=== PATIENT | female | born 1995 | race Caucasian/White ===

== ENCOUNTER 2017-04-21 07:36 | Emergency (ER) | payer MEDICAID ==
[2017-04-21 08:28] LABS: Urine RBC None Seen /hpf (0 - 4)
[2017-04-21 09:03] LABS: Urine Bilirubin Negative (Negative); Urine Blood Negative /uL (Negative); Urine Color Yellow (Yellow); Urine Glucose Normal (Normal); Urine Ketone Negative (Negative); Urine Mucus FEW (None Seen); Urine Nitrite Negative (Negative); Urine Squamous Epithelial Cell FEW /hpf (<5); Urine Urobilinogen Normal (Negative)
[2017-04-21 10:18] LABS: Basophils # (auto) 0 uL; Basophils % (auto) 0.3 % (0.0-2.0); Eosinophils # (auto) 0 uL; Eosinophils % (auto) 0.3 % (0.0-7.0); Hematocrit 32.4 % (36.0-46.0); Hemoglobin 11.2 g/dL (12.2-16.2); Lymphocytes # (auto) 1.3 uL; Mean Corpuscular Hemoglobin 33.9 pg (28.0-32.0); Mean Corpuscular Hgb Conc. 34.6 g/dL (32.0-36.0); Mean Platelet Volume 9.3 fL (6.9-10.8); Monocytes # (auto) 0.5 uL; Monocytes % (auto) 4.5 % (0.0-12.0); Neutrophils # (auto) 10.1 uL; Neutrophils % (auto) 83.9 % (37.0-80.0); Platelet Count (auto) 192 10^3/uL (140-450); Red Cell Distribution Width 13.1 % (11.8-14.3)
[2017-04-21 10:40] LABS: Albumin 3.2 g/dL (3.4-5.0); BUN/Creatinine Ratio 22.5; Calcium 8.8 mg/dL (8.5-10.1); Potassium 4.1 mmol/L (3.5-5.1)
[2017-04-21 10:43] LABS: Bilirubin, Total 0.4 mg/dL (0.2-1.0); Total Protein 7.1 g/dL (6.4-8.2)
[2017-04-21] MEDS ORDERED: SODIUM CHLORIDE 0.9% 1,000 ML IV ONE (11:17)
[2017-04-21] MEDS ORDERED: cefTRIAXone 1GM/50ML D5W 50 ML IV ONE (11:30)
[2017-04-21 11:58] VITALS: BP 97/60
== END 2017-04-21 12:44 | disposition home or self-care (01) ==
LOC: ER 07:36
DX: O23.42 Unspecified infection of urinary tract in pregnancy, second trimester (principal); O25.12 Malnutrition in pregnancy, second trimester; Z3A.19 19 weeks gestation of pregnancy
CPT/HCPCS: 36415; 80053; 81001; 85025; 96365; 99284; J0696; J7030

== ENCOUNTER 2020-01-02 20:12 | Emergency (ER) | payer MEDICAID ==
[~2020-01-02] VITALS: Ht 160 cm; Wt 58.2 kg
[2020-01-02 21:06] LABS: Basophils # (auto) 0.1 10 ^3/uL (0-0.2); Basophils % (auto) 0.5 % (0.0-2.0); Eosinophils # (auto) 0.1 10 ^3/uL (0-0.8); Eosinophils % (auto) 0.8 % (0.0-7.0); Hematocrit 40.8 % (36.0-46.0); Lymphocytes # (auto) 1.9 10 ^3/uL (0.4-5.4); Lymphocytes % (auto) 16.4 % (10.0-50.0); Mean Corpuscular Hgb Conc. 34.2 g/dL (32.0-36.0); Mean Corpuscular Volume 93.7 fL (80.0-100.0); Monocytes # (auto) 0.5 10 ^3/uL (0-1.3); Monocytes % (auto) 4.7 % (0.0-12.0); Neutrophils # (auto) 8.9 10 ^3/uL (1.6-8.6); Neutrophils % (auto) 77.6 % (37.0-80.0); Platelet Count (auto) 301 10^3/uL (140-450); Red Blood Cells 4.36 10^6/uL (4.0-5.20); Red Cell Distribution Width 12.6 % (11.8-14.3); White Blood Cell 11.5 10^3/uL (4.4-10.8)
[2020-01-02 21:20] LABS: INR 0.96 (0.9-1.15); Partial Thromboplastin Time 28.3 sec (23.64-32.05)
[2020-01-02 23:07] LABS: Urine Bacteria NONE SEEN /hpf (None Seen); Urine Blood Negative /uL (Negative); Urine Mucus FEW (None Seen); Urine Specific Gravity 1.026 (1.001-1.035); Urine WBC 1 /hpf (0 - 5)
[2020-01-03 00:46] VITALS: BP 105/66
== END 2020-01-03 00:49 | disposition home or self-care (01) ==
LOC: ER 20:13
DX: O20.0 Threatened abortion (principal); Z3A.01 Less than 8 weeks gestation of pregnancy
CPT/HCPCS: 36415; 76801; 76817; 81001; 84702; 85025; 85610; 85730

== ENCOUNTER 2021-05-29 14:28 | Emergency (ER) | payer MEDICAID ==
[~2021-05-29] VITALS: Ht 160 cm; Wt 61.7 kg
[2021-05-29 15:24] VITALS: BP 122/77
[2021-05-29 15:27] LABS: Basophils # (auto) 0.1 10 ^3/uL (0-0.2); Basophils % (auto) 0.5 % (0.0-2.0); Eosinophils # (auto) 0.1 10 ^3/uL (0-0.8); Eosinophils % (auto) 0.6 % (0.0-7.0); Hematocrit 39.7 % (36.0-46.0); Hemoglobin 13.5 g/dL (12.2-16.2); Lymphocytes # (auto) 1.8 10 ^3/uL (0.4-5.4); Lymphocytes % (auto) 16.9 % (10.0-50.0); Mean Corpuscular Hemoglobin 31.8 pg (28.0-32.0); Mean Corpuscular Hgb Conc. 33.9 g/dL (32.0-36.0); Mean Corpuscular Volume 93.6 fL (80.0-100.0); Monocytes # (auto) 0.4 10 ^3/uL (0-1.3); Monocytes % (auto) 3.7 % (0.0-12.0); Neutrophils # (auto) 8.5 10 ^3/uL (1.6-8.6); Neutrophils % (auto) 78.3 % (37.0-80.0); Red Blood Cells 4.25 10^6/uL (4.0-5.20); Red Cell Distribution Width 13.1 % (11.8-14.3); White Blood Cell 10.9 10^3/uL (4.4-10.8)
[2021-05-29 16:59] LABS: Urine Bacteria FEW /hpf (None Seen); Urine Blood TRACE /uL (Negative); Urine Mucus FEW (None Seen); Urine Specific Gravity 1.027 (1.001-1.035); Urine WBC 15 /hpf (0 - 5)
== END 2021-05-29 17:13 | disposition home or self-care (01) ==
LOC: ER 14:28
DX: O20.0 Threatened abortion (principal); O23.41 Unspecified infection of urinary tract in pregnancy, first trimester; N39.0 Urinary tract infection, site not specified; Z3A.09 9 weeks gestation of pregnancy
CPT/HCPCS: 36415; 76801; 81001; 84702; 85025

== ENCOUNTER 2021-07-11 07:01 | Emergency (ER) | payer MEDICAID ==
[~2021-07-11] VITALS: Ht 160 cm; Wt 60.3 kg
[2021-07-11 07:27] VITALS: BP 106/70
[2021-07-11 08:28] LABS: Urine Bacteria NONE SEEN /hpf (None Seen); Urine Blood 1+ /uL (Negative); Urine Specific Gravity 1.017 (1.001-1.035); Urine WBC 2 /hpf (0 - 5)
== END 2021-07-11 08:41 | disposition home or self-care (01) ==
LOC: ER 07:01
DX: O20.0 Threatened abortion (principal); O34.82 Maternal care for other abnormalities of pelvic organs, second trimester; N83.202 Unspecified ovarian cyst, left side; Z3A.15 15 weeks gestation of pregnancy
CPT/HCPCS: 76805; 81001

== ENCOUNTER 2021-07-13 08:16 | Emergency (ER) | payer MEDICAID ==
[~2021-07-13] VITALS: Ht 160 cm; Wt 60.3 kg
[2021-07-13 08:59] VITALS: BP 120/84
[2021-07-13 09:58] LABS: Urine WBC None Seen /hpf (0 - 5)
[2021-07-13 13:00] LABS: Urine Bacteria NONE SEEN /hpf (None Seen); Urine Blood 3+ /uL (Negative); Urine Mucus FEW (None Seen); Urine Specific Gravity 1.026 (1.001-1.035)
== END 2021-07-13 14:12 | disposition home or self-care (01) ==
LOC: ER 08:16
DX: O20.0 Threatened abortion (principal); Z3A.15 15 weeks gestation of pregnancy
CPT/HCPCS: 76805; 81001

== ENCOUNTER 2021-12-13 09:03 | Observation (INO) | payer MEDICAID ==
[~2021-12-13] VITALS: Ht 160 cm; Wt 63.5 kg
== END 2021-12-13 11:02 | disposition home or self-care (01) ==
LOC: LDRP 09:03
PROVIDERS: ADMIT Obstetrics & Gynecology Obstetrics; ATTEND Obstetrics & Gynecology Obstetrics
DX: O36.60X0 Maternal care for excessive fetal growth, unspecified trimester, not applicable or unspecified (principal); O99.353 Diseases of the nervous system complicating pregnancy, third trimester; G40.909 Epilepsy, unspecified, not intractable, without status epilepticus; Z3A.37 37 weeks gestation of pregnancy
CPT/HCPCS: 59025; 76818; 81002; 82948; 82962; 94760; G0378

== ENCOUNTER 2021-12-15 07:15 | Inpatient (IN) | payer MEDICAID ==
[~2021-12-15] VITALS: Ht 160 cm; Wt 63.5 kg
[2021-12-15] MEDS ORDERED: LIDOCAINE 2%HCL (LOCAL ANESTH.) INJ 10ml MDV IJ PRN (08:00)
[2021-12-15] MEDS ORDERED: BUTORPHANOL TARTRATE 2 MG/1 ML VIAL IV PRN ×2 (08:00)
[2021-12-15] MEDS ORDERED: PROMETHAZINE HCL 25 MG/ML 1ML IV PRN (08:00)
[2021-12-15 08:21] LABS: Basophils # (auto) 0 10 ^3/uL (0-0.2); Basophils % (auto) 0.4 % (0.0-2.0); Eosinophils # (auto) 0 10 ^3/uL (0-0.8); Eosinophils % (auto) 0.5 % (0.0-7.0); Hematocrit 35.1 % (36.0-46.0); Lymphocytes # (auto) 1.5 10 ^3/uL (0.4-5.4); Lymphocytes % (auto) 14.8 % (10.0-50.0); Mean Corpuscular Hemoglobin 30.7 pg (28.0-32.0); Mean Corpuscular Hgb Conc. 34.2 g/dL (32.0-36.0); Mean Corpuscular Volume 89.9 fL (80.0-100.0); Monocytes # (auto) 0.5 10 ^3/uL (0-1.3); Monocytes % (auto) 4.9 % (0.0-12.0); Neutrophils # (auto) 7.8 10 ^3/uL (1.6-8.6); Neutrophils % (auto) 79.4 % (37.0-80.0); Nucleated Red Blood Cells % 0.1 %; Red Cell Distribution Width 14.6 % (11.8-14.3); White Blood Cell 9.8 10^3/uL (4.4-10.8)
[2021-12-15] MEDS ORDERED: PREN-96 PO (08:26)
[2021-12-15] MEDS ORDERED: PROP60CA34 PO (08:27)
[2021-12-15 08:28] LABS: Urine Bacteria NONE SEEN /hpf (None Seen); Urine Blood 2+ /uL (Negative); Urine Mucus FEW (None Seen); Urine Specific Gravity 1.025 (1.001-1.035); Urine WBC 77 /hpf (0 - 5)
[2021-12-15 08:33] LABS: Alcohol, Urine < 3.0 mg/dL (0-10); Amphetamine Screen, Urine NEGATIVE (NEGATIVE); Barbiturate Scree,Urine NEGATIVE (NEGATIVE); Benzodiazephine Screen, Urine NEGATIVE (NEGATIVE); Cannabinoid Screen, Urine NEGATIVE (NEGATIVE); Cocaine Screen, Urine NEGATIVE (NEGATIVE); Opiate Scree,Urine NEGATIVE (NEGATIVE); Phencyclidine Screen, Urine NEGATIVE (NEGATIVE)
[2021-12-15 08:42] LABS: Albumin 2.8 g/dL (3.4-5.0); Calcium 8.3 mg/dL (8.5-10.1); Potassium 3.9 mmol/L (3.5-5.1)
[2021-12-15 08:45] LABS: Bilirubin, Total 0.4 mg/dL (0.2-1.0); Total Protein 6.7 g/dL (6.4-8.2)
[2021-12-15 09:10] LABS: INR 0.93 (0.9-1.15); Partial Thromboplastin Time 22.9 sec (23.6-33.0)
[2021-12-15] MEDS ORDERED: miSOPROStol 50 MCG per PRE-CUT 1/2 TAB PO PRN (09:30)
[2021-12-15] MEDS: LACTATED RINGER'S 1,000 ML IV SCH ×3 (11:15→15:43)
[2021-12-15] MEDS ORDERED: LIDOCAINE HCL 2 %PF INJ 10ML AMP IJ ONE (14:45)
[2021-12-15] MEDS ORDERED: NALOXONE HCL 0.4 MG/ML VIAL IV ONE (14:45)
[2021-12-15] MEDS ORDERED: ePHEDrine SULFATE 50 MG/ML AMP IV ONE (14:45)
[2021-12-15] MEDS ORDERED: fentaNYL CITRATE 100 MCG/2 ML VL IV ONE (14:45)
[2021-12-15] MEDS ORDERED: ROPIVACAINE HCL 200 ML EPI SCH ×2 (14:45→16:00)
[2021-12-15] MEDS ORDERED: LACT. RINGERS/OXYTOCIN 20UNITS 500 ML IV ONE ×2 (17:30→18:00)
[2021-12-15] MEDS ORDERED: TERBUTALINE SULFATE 1 MG/ML 1ML VIAL SC PRN (17:30)
[2021-12-15] MEDS: DERMOPLAST 60ML BOTTLE TOP PRN ×2 (17:59→22:26)
[2021-12-15] MEDS: PHISODERM TOP SOLN 240ML BTL TOP PRN ×2 (17:59→22:26)
[2021-12-15] MEDS: WITCH HAZEL-GLYCERIN PAD TOP PRN ×2 (18:00→22:26)
[2021-12-15] MEDS ORDERED: ONDANSETRON ODT 4 MG TAB PO PRN (21:15)
[2021-12-15] MEDS: ACETAMINOPHEN 325 MG TAB PO PRN (22:13)
[2021-12-15] MEDS: DOCUSATE SOD 100 MG CAP PO SCH (22:29)
[2021-12-16] MEDS: IBUPROFEN 800 MG TAB PO SCH ×4 (00:12→17:40)
[2021-12-16 03:00] VITALS: BP 124/68
[2021-12-16 06:07] LABS: RPR Non Reactive (Non Reactive)
[2021-12-16 06:45] VITALS: BP 98/57
[2021-12-16] MEDS ORDERED: DOCU100C10 PO (07:17)
[2021-12-16] MEDS ORDERED: IBUP800T26 PO (07:17)
[2021-12-16 10:30] VITALS: BP 97/71
[2021-12-16] MEDS: ACETAMINOPHEN 325 MG TAB PO PRN ×3 (11:39→22:22)
[2021-12-16] MEDS: LACTATED RINGER'S 1,000 ML IV SCH ×2 (13:15→14:58)
[2021-12-16 15:15] VITALS: BP 101/64
[2021-12-16] MEDS ORDERED: IBUPROFEN 600 MG TAB PO PRN (18:30)
[2021-12-16 19:00] VITALS: BP 109/69
[2021-12-16] MEDS: DOCUSATE SOD 100 MG CAP PO SCH (22:21)
== END 2021-12-16 23:46 | disposition home or self-care (01) | DRG 560 ==
LOC: LDRP 07:15 → UNDOADMOB 07:15 → LDRP 07:21 → UNDOADMOB 07:21 → INTOOBSV 07:50 → OBSVTOIN 07:50 → LDRP 07:51 → UNDODISIN 12-16 23:46
PROVIDERS: ADMIT Obstetrics & Gynecology Obstetrics; ATTEND Obstetrics & Gynecology Obstetrics
PROC: 10E0XZZ Delivery of Products of Conception, External Approach (ICD-10-PCS; principal; 2021-12-15)
PROC: 3E0R3BZ Introduction of Anesthetic Agent into Spinal Canal, Percutaneous Approach (ICD-10-PCS; 2021-12-15)
PROC: 00HU33Z Insertion of Infusion Device into Spinal Canal, Percutaneous Approach (ICD-10-PCS; 2021-12-15)
DX: O42.92 Full-term premature rupture of membranes, unspecified as to length of time between rupture and onset of labor (principal); Z37.0 Single live birth; Z20.822 Contact with and (suspected) exposure to COVID-19; Z3A.38 38 weeks gestation of pregnancy
CPT/HCPCS: 36415; 59025; 59409; 62282; 80053; 80307; 81001; 81002; 84112; 85025; 85610; 85730; 86592; 86850; 86900; 86901; 94760; 94762; 96360; 96361; 96365; 96366; 96374; 96375; G0378; J2590

== ENCOUNTER 2023-04-16 11:57 | Emergency (ER) | payer MEDICAID ==
[~2023-04-16] VITALS: Ht 160 cm; Wt 58.3 kg
[~2023-04-16 11:57] MED LIST: DOCU-265 PO; IBUP-1455 PO; PREN-96 PO; PROP60CA34 PO
[2023-04-16 12:53] VITALS: BP 134/74; PULSE 120; RESP 16; TEMP 98.4; O2SAT 99
== END 2023-04-16 13:42 | disposition home or self-care (01) ==
LOC: ER 11:57
DX: S83.91XA Sprain of unspecified site of right knee, initial encounter (principal); Z79.899 Other long term (current) drug therapy; W18.09XA Striking against other object with subsequent fall, initial encounter; Y93.89 Activity, other specified; Y92.89 Other specified places as the place of occurrence of the external cause; Y99.8 Other external cause status
CPT/HCPCS: 73562